=== PATIENT | female | born 1985 | race Caucasian/White ===

== ENCOUNTER 2018-10-16 13:51 | Emergency (ER) | payer MEDICAID ==
[~2018-10-16] VITALS: Ht 160 cm; Wt 81.0 kg
[2018-10-16 14:01] VITALS: Ht 160 cm; Wt 81.0 kg
[2018-10-16] MEDS ORDERED: SOD CHLORIDE 0.9% 1,000 ML IV STA (14:30)
--- NOTE | 2018-10-16 14:41 | ERD ---
ER Documentation Chief Complaint Chief Complaint Syncope after donating plasma; Witnessed fall.no neuro def/neck pain HPI 33-year-old otherwise healthy woman presents with syncopal episode after getting up from a laying position. She was laying down for about an hour donating blood and after she got up she states she felt dizzy and had a witnessed syncopal episode. There was no seizure activity, no head or neck injury, no loss of bowel or bladder control. Patient denies chest pain or shortness of breath. Patient is asymptomatic now. ROS All systems reviewed and are negative except as per history of present illness. Allergies Allergies: Coded Allergies: No Known Allergy (Unverified , 10/16/18) PMhx/Soc Depression Medical and Surgical Hx: pt denies Surgical Hx Hx Miscellaneous Medical Probl: Yes (depression) Hx Alcohol Use: Yes (used to drink socially) Hx Tobacco Use: Yes (quit 1.5 yrs ago) Smoking Status: Former smoker FmHx Family History: No diabetes Physical Exam Vitals Vital Signs Date Temp Pulse Resp B/P (MAP) Pulse Ox O2 O2 Flow FiO2 Time Delivery Rate 10/16/18 98.0 74 16 124/84 100 Room Air 16:43 (97) 10/16/18 98.1 76 14 130/88 100 Room Air 15:37 (102) 10/16/18 98.0 71 16 114/80 100 Room Air 14:20 (91) 10/16/18 97.7 70 16 117/80 98 14:01 (92) Physical Exam GENERAL: Well-developed, well-nourished, well-hydrated, in no apparent distress, looks nontoxic in appearance HEENT: Moist mucous membranes, pink conjunctiva, no cervical spine tenderness or step-off deformities, no goiter, no jaundice or icterus, extraocular movements intact without pain. No submandibular induration, and no pharyngeal erythema NEURO: Alert and oriented 3, cranial nerves II through XII intact bilaterally, pupils equal round reactive to light, no focal deficits or facial asymmetry, sensation intact distally Strength 5/5 in upper and lower extremities bilaterally CARDIAC: Regular rate and rhythm, no murmurs rubs or gallops LUNGS: Clear bilaterally no wheezing crackles or stridor ABDOMEN: Soft nontender, no guarding, no rigidity, no rebound, no psoas sign no obturator sign. Normoactive bowel sounds SKIN: Warm and dry to touch, no abrasions, contusions, or hematomas, no lacerations, no ecchymosis, no target lesions, and without ulcers EXTREMITIES: No clubbing cyanosis or edema, calves are bilaterally symmetrical, no Homans sign, no popliteal cord sign. Distal pulses equal and bilateral PSYCH: Normal affect without agitation or irritability Result Diagram: 10/16/18 1443 10/16/18 1443 Results 24 hrs Laboratory Tests Test 10/16/18 14:43 White Blood Count 13.2 10^3/ul Red Blood Count 6.32 10^6/ul Hemoglobin 18.0 g/dl Hematocrit 52.6 % Mean Corpuscular Volume 83.2 fl Mean Corpuscular Hemoglobin 28.5 pg Mean Corpuscular Hemoglobin Concent 34.2 g/dl Red Cell Distribution Width 12.5 % Platelet Count 314 10^3/UL Mean Platelet Volume 9.0 fl Immature Granulocytes % 0.600 % Neutrophils % 78.3 % Lymphocytes % 16.8 % Monocytes % 3.3 % Eosinophils % 0.5 % Basophils % 0.5 % Nucleated Red Blood Cells % 0.0 /100WBC Immature Granulocytes # 0.080 10^3/ul Neutrophils # 10.3 10^3/ul Lymphocytes # 2.2 10^3/ul Monocytes # 0.4 10^3/ul Eosinophils # 0.1 10^3/ul Basophils # 0.1 10^3/ul Nucleated Red Blood Cells # 0.0 10^3/ul Sodium Level 136 mmol/L Potassium Level 4.7 mmol/L Chloride Level 102 mmol/L Carbon Dioxide Level 27 mmol/L Anion Gap 7 Blood Urea Nitrogen 12 mg/dl Creatinine 0.80 mg/dl Est Glomerular Filtrat Rate mL/min > 60 mL/min Glucose Level 100 mg/dl Calcium Level 9.2 mg/dl Current Medications Medications Dose Sig/Conrad Start Time Status Last (Trade) Ordered Route PRN Stop Time Admin Dose Reason Admin Sodium 1,000 ml @ Q1H STAT 10/16/18 DC 10/16/18 Chloride 1,000 mls/hr IV 14:30 10/16/18 14:45 15:29 Procedures/MDM IV line was established patient was placed on engine monitor rhythm strip revea led a sinus rhythm at about 80 bpm with upright P and T waves. Patient was afebrile I administered 1 L normal saline IV CBC reveals polycythemia with a hemoglobin of 18 and electrolytes were normal EKG: Performed, read by me revealed a normal sinus rhythm at 70 bpm, normal axis, narrow QRS complex, no concerning ST elevations or depressions Otherwise healthy young woman had a syncopal episode after getting up from a laying position consistent with orthostatic syncope, work-up today was unre markable and patient will be discharged to follow-up with PMD. Differential diagnoses considered, included but not limited to acute coronary syndrome, pulmonary embolism, aortic dissection, abdominal aortic aneurysm, sepsis, stroke, meningitis, encephalitis, pneumonia, appendicitis, cholecystitis, bowel obstruction, pyelonephritis, nephrolithiasis, cystitis, as well as metabolic, hematologic, and electrolyte abnormalities. As well as abscess, cellulitis, fractures, and dislocations. Patient feels much better at this time, and vital signs are normal, symptoms have improved. I did give strict instructions to return to the ED if symptoms continue or worsen, patient will otherwise follow-up with primary care physician. Patient understood instructions and agreed to plan. Disclaimer: Inadvertent spelling and grammatical errors are likely due to EHR/dictation software use and do not reflect on the overall quality of patient care. Also, please note that the electronic time recorded on this note does not necessarily reflect the actual time of the patient encounter. Departure Diagnosis: Primary Impression: Syncope Syncope type: carotid sinus syncope Qualified Codes: G90.01 - Carotid sinus syncope Condition: Good NICK SHIELDS MD Oct 16, 2018 14:41
[2018-10-16 16:43] VITALS: BP 124/84; PULSE 74; RESP 16
== END 2018-10-16 16:47 | disposition home or self-care (01) ==
LOC: E/R 13:51
DX: G90.01 Carotid sinus syncope (principal); Z87.891 Personal history of nicotine dependence
CPT/HCPCS: 36415; 80048; 85025; 93005; J7030; Z7502